=== PATIENT | female | born 1935 | race Caucasian/White ===

== ENCOUNTER → 2017-07-02 | Outpatient (CLI) | payer OTHER, MEDICARE ==
[~2017-07-02] MED LIST: ANAS1TAB19 PO; ASPI-319 PO; FISHOIL PO; IBUP-1050 PO; LEVO112T17 PO; METO-479 PO; OMEP20CA9 PO; PARO20TA3 PO
--- NOTE | 2017-07-02 14:56 | DIAGNOSTIC IMAGING REPORT ---
RIGHT HAND 3 VIEWS CLINICAL HISTORY: Right hand pain. FINDINGS: 3 views of the right hand are obtained. No prior studies are available for comparison at the time of dictation. The skeletal structures are osteopenic. No fracture is seen. There is mild narrowing at the radiocarpal articulation. There is mild osteoarthritic change seen at the first carpometacarpal and metacarpophalangeal joints. There is osteoarthritic change seen involving the interphalangeal joints, distal greater than proximal. Erosive osteoarthritis is seen involving the second, third, and fifth distal interphalangeal joints. Mild soft tissue swelling suggested in the fingers. IMPRESSION: 1. No fracture is identified. 2. Osteopenia and arthritic change as above, greatest involving the distal interphalangeal joints. See discussion. Electronically signed by: Bryce Wolf M.D. 07/02/2017 2:54 PM Dictated Date/Time: 07/02/2017 2:53 PM
== END | disposition home or self-care (01) ==
LOC: C.RAD1850 14:33
PROVIDERS: ATTEND Family Medicine
DX: M19.041 Primary osteoarthritis, right hand (principal); Z88.5 Allergy status to narcotic agent

== ENCOUNTER 2021-07-23 17:42 | Inpatient (IN) ==
[2021-07-23] MEDS ORDERED: ONDANSETRON INJ 2 MG/ML 2 ML VIAL IV STA (18:06)
--- NOTE | 2021-07-23 18:13 | Emergency Department Note ---
History of Present Illness General Chief Complaint: Abdominal Pain Stated Complaint: ABDOMINAL PAIN, VOMITING Time Seen by Provider: 07/23/21 17:51 Source: family (Daughter at bedside) History of Present Illness Provider Complaint: abdominal pain Onset (ago): 3 day(s) Pain Consistency: intermittent Location: epigastric Radiation: RUQ Severity: moderate Maximum Pain Intensity: 6 Current Pain Intensity: 6 Quality: + aching Relieved By: + nothing Exacerbated By: + nothing Context: no foreign travel, no possible food poisoning, no sick contacts, no recent antibiotic use, no recent surgery/procedure, no recent injury or no history of similar episodes Associated Symptoms: + nausea, + vomiting, + diarrhea and + headache; no fever, no chills, no constipation, no dysuria, no hematemesis, no hematochezia, no melena, no hematuria, no anorexia, no syncope, no neck pain, no chest pain and no breathing difficulty Home Medications Medication Instructions Recorded Confirmed Type acetaminophen 650 mg 1,300 mg PO TID 05/19/20 07/23/21 History tablet,extended release (Tylenol Arthritis Pain) levothyroxine 125 mcg tablet 125 mcg PO QAM 07/23/21 07/23/21 History memantine 10 mg tablet 10 mg PO BID 07/23/21 07/23/21 History metoprolol tartrate 100 mg tablet 100 mg PO QAM 07/23/21 07/23/21 History omeprazole 40 mg capsule,delayed 40 mg PO QAM 07/23/21 07/23/21 History release paroxetine HCl 20 mg tablet 20 mg PO QAM 07/23/21 07/23/21 History simvastatin 20 mg tablet 20 mg PO QPM 07/23/21 07/23/21 History Allergies Allergy/AdvReac Type Severity Reaction Status Date / Time codeine AdvReac Intermediate Vomiting/DI Verified 07/23/21 18:20 ZZINESS Past Med/Surg History Medical History Alzheimer disease Bilateral primary osteoarthritis of knee Brain bleed Hypertension Symptoms of urinary tract infection Thyroid cancer Surgical History H/O thyroidectomy S/P tonsillectomy Social History Smoking Status: Former smoker Tobacco Type: Cigarettes Feels Safe at Home: Yes Review of Systems Unobtainable due to cognitive status (Due to Alzheimer's) Physical Exam Vital Signs: Vital Signs - 24 hr 07/23/21 17:44 07/23/21 18:53 07/23/21 20:00 Temperature 37 C Temperature Source Oral Pulse Rate 81 Pulse Rate [Apical ] 67 75 Respiratory Rate 16 18 18 Respiratory Effort / Characteristics Non-Labored Sponta neous Respiratory Depth Normal Respiratory Patter n Regular Blood Pressure 182/86 H Blood Pressure [Le ft Arm] 169/67 H Blood Pressure Gauri n 118 Blood Pressure Gauri n [Left Arm] 101 Blood Pressure Pos ition Sitting Pulse Oximetry 94 96 96 Oxygen Delivery Me thod Room Air Room Air Room Air Sepsis Recent Feve r Within 48 Hours No Sepsis New/Unexpla ined Change in Men juan diego Status N/A Sepsis Action Take n by Nursing No Action Required Physical Exam: Physical Exam GENERAL: He is oriented to person, place, and time. He appears well-developed and well-nourished. He does not appear distressed. HENT: Exam performed. - Head: Normocephalic and atraumatic. - Right Ear: External ear normal. No mastoid tenderness. - Left Ear: External ear normal. No mastoid tenderness. - Mouth/Throat: The oropharynx is clear and moist. No trismus in the jaw. No dental abscesses or uvula swelling. No oropharyngeal exudate or tonsillar abscesses. EYES: Conjunctivae and EOM are normal. Pupils are equal, round, and reactive to light. Right eye exhibits no discharge. Left eye exhibits no discharge. No scleral icterus. NECK: Normal range of motion. Neck supple. No JVD present. No spinous process tenderness present. No carotid bruit present. No rigidity. No tracheal deviation and normal range of motion present. No Brudzinski's sign and no Kernig's sign noted. CV: Normal rate, regular rhythm, normal heart sounds and intact distal pulses. There is no peripheral edema. Palpable radial pulses bue. PULM/CHEST: Effort normal and breath sounds normal. No respiratory distress. No stridor. He has no wheezes. He has no rales. - Chest Wall: He exhibits no tenderness. ABD: The abdomen is soft. Bowel sounds are normal. He has no distension. No mass is present. There is tenderness to palpation of the epigastric area There is no rebound, no guarding, no Ross's sign and no tenderness at McBurney's point. Rovsig negative. MUSC/SKEL: Normal range of motion. There is no peripheral edema, tenderness or deformity. LYMPH: No cervical adenopathy. NEURO: He is alert and oriented to person, place, and time. He has normal strength. No cranial nerve deficit or sensory deficit. Coordination and gait normal. GCS eye subscore is 4. GCS verbal subscore is 5. GCS motor subscore is 6. Cerebellar tests wnl. SKIN: Skin is warm and dry. He is not diaphoretic. PSYCH: He has a normal mood and affect. Behavior is normal. Judgment and thought content normal. Female Course Course 175: The patient was evaluated in room B8. A complete history and physical exam was performed Cardiac monitoring: An order was placed for continuous cardiac monitoring. The monitor shows a rate of 80 with sinus rhythm 2034: Vital signs stable. Labs within normal limits with exception of potassium 3.2. CT of the abdomen shows possible cholecystitis. CT of the head within normal limits. Patient will receive ultrasound of the abdomen. 2232:Vital signs stable. Patient is still reporting nausea and having vomiting. Ultrasound shows distended gallbladder but no gallstones. Gallbladder wall is borderline prominent measuring 4 mm. No pericholecystic fluid. Common bile duct is borderline prominent at 9 mm. Questionable intrahepatic biliary ectasia. Patient will be admitted for GI evaluation and possible MRCP. Discussed case with Dr. Lonny beasley [place] hospitalist to evaluate the patient for admission. Administered Medications Sodium Chloride (Nss) 500 mls @ 125 mls/hr IV .Q4H [facility] Stop: 08/22/21 18:14 Last Admin: 07/23/21 21:44 Dose: 125 mls/hr Documented by: [id number] Infusion: 07/23/21 21:44 Dose: 125 mls/hr Documented by: [id number] Admin: 07/23/21 18:34 Dose: 125 mls/hr Documented by: [id number] Discontinued Medications Ioversol (Optiray 320 100ml) 94 ml IV ONCE ONE Stop: 07/23/21 19:46 Last Admin: 07/23/21 19:47 Dose: 94 ml Documented by: [id number] Ondansetron HCl (Ondansetron Inj 2 Mg/Ml 2 Ml Vial) 4 mg IV NOW STA Stop: 07/23/21 18:07 Last Admin: 07/23/21 18:33 Dose: 4 mg Documented by: [id number] Ondansetron HCl (Ondansetron Inj 2 Mg/Ml 2 Ml Vial) Confirm Administered Dose 4 mg .ROUTE .STK-MED ONE Stop: 07/23/21 21:04 Last Admin: 07/23/21 21:04 Dose: 2 mg Documented by: [id number] Medical Decision Making Laboratory Data Result diagrams: 07/23/21 18:23 07/23/21 18:23 Lab Results 07/23/21 07/23/21 07/23/21 Range/Units 18:23 18:23 18:23 WBC 5.99 (4.8-10.8) K/uL RBC 4.50 (4.2-5.4) M/uL Hgb 12.7 (12.0-16.0) g/dL Hct 39.2 (37-47) % MCV 87.1 (80-100) fL MCH 28.2 (25-34) pg MCHC 32.4 (32-36) g/dL RDW Std Deviation 45.2 (36.4-46.3) fL RDW Coeff of Stefania 14.2 (11.5-14.5) % Plt Count 228 (130-400) K/uL MPV 10.4 (7.4-10.4) fL Immature Gran % (Auto) 0.2 % Neut % (Auto) 63.2 % Lymph % (Auto) 22.7 % [place] % (Auto) 12.5 % Eos % (Auto) 1.2 % Baso % (Auto) 0.2 % Neut # (Auto) 3.79 (1.4-6.5) K/uL Lymph # (Auto) 1.36 (1.2-3.4) K/uL [place] # (Auto) 0.75 H (0.11-0.59) K/uL Eos # (Auto) 0.07 (0-0.5) K/uL Baso # (Auto) 0.01 (0-0.2) K/uL Immature Gran # (Auto) 0.01 (0.00-0.02) K/uL PT 10.4 (9.0-12.0) Seconds INR 1.0 (0.9-1.1) APTT 27.6 (21.0-31.0) Seconds PTT Ratio 1.0 Sodium 138 (136-145) mmol/L Potassium 3.2 L (3.5-5.1) mmol/L Chloride 102 (98-107) mmol/L Carbon Dioxide 27 (21-32) mmol/L Anion Gap 9 (3-11) BUN 13 (6-23) mg/dl Creatinine 0.70 (0.6-1.2) mg/dl Est Cr Clr Drug Dosing 66.3 ml/min Est GFR ( Amer) 92.9 ml/min Est GFR (Non-Af Amer) 80.1 ml/min BUN/Creatinine Ratio 18.6 (10-20) Glucose 121 H (70-99(Fasting)) mg/dl Calcium 8.8 (8.5-10.1) mg/dl Total Bilirubin 0.4 (0.2-1.0) mg/dl Direct Bilirubin 0.0 (0-0.2) mg/dl AST 15 (13-39) U/L ALT 12 (7-52) U/L Alkaline Phosphatase 84 (34-104) U/L Troponin I High Sens (0-14) pg/ml Total Protein 6.7 (6.0-8.3) gm/dl Albumin 4.0 (3.4-5.0) gm/dl Lipase 32 (11-82) U/L Urine Color Urine Appearance (Clear) Urine pH (4.5-7.5) Ur Specific [place] (1.000-1.030) Urine Protein (Negative) Urine Glucose (UA) (Negative) Urine Ketones (Negative) Urine Blood (Negative) Urine Nitrite (Negative) Urine Bilirubin (Negative) Urine Urobilinogen (Negative) Ur Leukocyte Esterase (Negative) Urine WBC (Auto) (0-5) /hpf Urine RBC (Auto) (0-4) /hpf U Hyaline Cast (Auto) (0-5) /lpf U Epithel Cells (Auto) (0-5) /lpf Urine Bacteria (Auto) (Negative) 07/23/21 07/23/21 Range/Units 18:23 Unknown WBC (4.8-10.8) K/uL RBC (4.2-5.4) M/uL Hgb (12.0-16.0) g/dL Hct (37-47) % MCV (80-100) fL MCH (25-34) pg MCHC (32-36) g/dL RDW Std Deviation (36.4-46.3) fL RDW Coeff of Stefania (11.5-14.5) % Plt Count (130-400) K/uL MPV (7.4-10.4) fL Immature Gran % (Auto) % Neut % (Auto) % Lymph % (Auto) % [place] % (Auto) % Eos % (Auto) % Baso % (Auto) % Neut # (Auto) (1.4-6.5) K/uL Lymph # (Auto) (1.2-3.4) K/uL [place] # (Auto) (0.11-0.59) K/uL Eos # (Auto) (0-0.5) K/uL Baso # (Auto) (0-0.2) K/uL Immature Gran # (Auto) (0.00-0.02) K/uL PT (9.0-12.0) Seconds INR (0.9-1.1) APTT (21.0-31.0) Seconds PTT Ratio Sodium (136-145) mmol/L Potassium (3.5-5.1) mmol/L Chloride (98-107) mmol/L Carbon Dioxide (21-32) mmol/L Anion Gap (3-11) BUN (6-23) mg/dl Creatinine (0.6-1.2) mg/dl Est Cr Clr Drug Dosing ml/min Est GFR ( Amer) ml/min Est GFR (Non-Af Amer) ml/min BUN/Creatinine Ratio (10-20) Glucose (70-99(Fasting)) mg/dl Calcium (8.5-10.1) mg/dl Total Bilirubin (0.2-1.0) mg/dl Direct Bilirubin (0-0.2) mg/dl AST (13-39) U/L ALT (7-52) U/L Alkaline Phosphatase (34-104) U/L Troponin I High Sens 11.5 (0-14) pg/ml Total Protein (6.0-8.3) gm/dl Albumin (3.4-5.0) gm/dl Lipase Cancelled (11-82) U/L Urine Color Yellow Urine Appearance Clear (Clear) Urine pH 6.0 (4.5-7.5) Ur Specific [place] 1.010 (1.000-1.030) Urine Protein Negative (Negative) Urine Glucose (UA) Negative (Negative) Urine Ketones Negative (Negative) Urine Blood Negative (Negative) Urine Nitrite Negative (Negative) Urine Bilirubin Negative (Negative) Urine Urobilinogen Negative (Negative) Ur Leukocyte Esterase Trace H (Negative) Urine WBC (Auto) 1-5 (0-5) /hpf Urine RBC (Auto) 0-4 (0-4) /hpf U Hyaline Cast (Auto) 1-5 (0-5) /lpf U Epithel Cells (Auto) 10-20 H (0-5) /lpf Urine Bacteria (Auto) Negative (Negative) Imaging Data Radiologist's Impression: Abdomen/Pelvis CT 07/23/21 18:06 CT abd pelvis IV con only CLINICAL HISTORY: epigastric hughes TECHNIQUE: Helical axial images of the abdomen and pelvis were obtained and displayed. Automated dose lowering techniques and/or adjustment according to patient size were utilized for this exam. This exam was performed with intravenous contrast. CT DOSE: 1299.77 mGy.cm COMPARISON: None available at the time of this dictation. FINDINGS: Lower chest: No acute abnormality Liver: Focal fatty changes are noted about the falciform ligament. Subcentimeter hypodensities are favored to represent cysts. Gallbladder and biliary tree: There is minimal prominence of the gallbladder wall. No intra- or extrahepatic biliary ductal dilation. Pancreas: Unremarkable, no focal lesions. Spleen: Unremarkable. Adrenals: Unremarkable. Kidneys and ureters: Left-sided peripelvic cysts are seen. Bladder: Unremarkable. Reproductive organs: Unremarkable. Bowel: Diverticulosis is seen without evidence of diverticulitis. The appendix is surgically absent. A moderate hiatal hernia is seen. Lymph nodes Retroperitoneal: Subcentimeter valdez hepatis nodes are noted. Mesenteric: Unremarkable. Pelvic: Unremarkable. Peritoneum: Normal. Vessels: Atherosclerotic calcifications are seen. Abdominal wall: A fat-containing umbilical hernia is seen. Bones: Degenerative changes in the visualized spine. IMPRESSION: Questionable prominence of the gallbladder wall. If there is clinical concern for acute cholecystitis, right upper quadrant ultrasound can be performed. Otherwise no acute abnormalities are seen. ACT 112: Negative or not required by law. Electronically signed by: Alessandro Velazquez M.D. 07/23/2021 8:04 PM Chest X-Ray 07/23/21 18:07 XR chest 1V portable CLINICAL HISTORY: epigastric pain TECHNIQUE: Single frontal radiograph of the chest was obtained. Comparison: Comparison is made to rib series 08/24/2015 FINDINGS: No lines and tubes are seen. Calcified aortic knob is seen. The lungs are clear. No evidence of pleural effusion or pneumothorax. IMPRESSION: No acute chest disease. ACT 112: Negative or not required by law. Electronically signed by: Alessandro Velazquez M.D. 07/23/2021 7:[address] 07/23/21 18:07 CT head/brain wo con CLINICAL HISTORY: bansal Technique: Contiguous axial CT images of the head were acquired from the base of the skull to the vertex without intravenous contrast administration. Images were viewed in brain, subdural and bone windows. Automated dose lowering techniques and/or adjustment according to patient size were utilized for this exam. Comparison: Comparison is made to CT head 03/02/2012 Findings: Areas of decreased attenuation are present in the periventricular and subcortical white matter bilaterally consistent with small vessel ischemic di sease. Generalized cerebral atrophy with commensurate enlargement of the ventricles, sulci, and cisterns is also present. There is no acute intracranial hemorrhage or evidence of acute territorial infarction. No shift of the midline structures, mass effect, or extra-axial abnormalities are shown. A therosclerotic calcifications are present in the intracranial segments of the internal carotid arteries. Imaged portions of the paranasal sinuses and mastoid air cells are clear. The orbits appear normal. There are no acute fractures of the calvaria or scalp swelling. Hyperostosis frontalis is incidentally noted. Impression: No acute intracranial hemorrhage, no evidence of acute territorial infarction or other acute intracranial disease process. ACT 112: Negative or not required by law. Electronically signed by: Alessandro Velazquez M.D. 07/23/2021 7:56 PM PreliminaryFindingsOnly See Final Report For Complete Findings US GALLBLADDER: The gallbladder is distended. There are no gallstones. The gallbladder wall is borderline prominent, measuring 4 mm. However, there is no pericholecystic fluid or reported sonographic Murphysign. The common bile duct is borderline prominent for the patient's age measuring 9 mm. Questionable subtle intrahepatic biliaryectasia. Please correlate with laboratoryfindings. If there is concern for biliarystasis, MRCP or endoscopic evaluation maybe appropriate. The liver is hyperechoic, measuring 16.9 cm. No focal abnormalityidentified. The visualized pancreas, portal vein and right kidneyare unremarkable. Small right pleural eff usion suggested. No free intraperitoneal fluid. Radiologist: Evaristo Espana MD Study ready at 21:47 and initial results transmitted at 22:00 ECG Data Indication: abdominal pain Rate (beats per minute): 67 Rhythm: normal sinus Findings: no ST depression, no ST elevation or no prolonged QT MDM Narrative 1751: The patient was evaluated in room B8. A complete history and physical exam was performed Cardiac monitoring: An order was placed for continuous cardiac monitoring. The monitor shows a rate of 80 with sinus rhythm 2034: Vital signs stable. Labs within normal limits with exception of potassium 3.2. CT of the abdomen shows possible cholecystitis. CT of the head within normal limits. Patient will receive ultrasound of the abdomen. 2232:Vital signs stable. Patient is still reporting nausea and having vomiting. Ultrasound shows distended gallbladder but no gallstones. Gallbladder wall is borderline prominent measuring 4 mm. No pericholecystic fluid. Common bile duct is borderline prominent at 9 mm. Questionable intrahepatic biliary ectasia. Patient will be admitted for GI evaluation and possible MRCP. [facility] for [facility]. Impression & Plan Abdominal pain, Choledocholithiasis Discharge Plan Visit Data Chief Complaint: Abdominal Pain Stated Complaint: ABDOMINAL PAIN, VOMITING Discharge Problem: Abdominal pain, Choledocholithiasis Patient Disposition: Being Evaluated by Hospitalist Forms Stand Alone Forms: [facility] Prescriptions Prescriptions: No Action acetaminophen [Tylenol Arthritis Pain] 650 mg tablet extended release 1,300 mg PO TID RF: 0 metoprolol tartrate 100 mg tablet 100 mg PO QAM RF: 0 omeprazole 40 mg capsule,delayed release(DR/EC) 40 mg PO QAM RF: 0 paroxetine HCl 20 mg tablet 20 mg PO QAM RF: 0 simvastatin 20 mg tablet 20 mg PO QPM RF: 0 levothyroxine 125 mcg tablet 125 mcg PO QAM RF: 0 memantine 10 mg tablet 10 mg PO BID RF: 0 Referrals Referrals: Marv Weber DO [Primary Care Provider] -
[2021-07-23] MEDS: SODIUM CHLORIDE 0.9% 500 ML IV SCH ×2 (18:34→21:44)
[2021-07-23 18:51] LABS: Partial Thromboplastin Time 27.6 Seconds (21.0-31.0); Prothrombin Time 10.4 Seconds (9.0-12.0)
[2021-07-23 18:52] LABS: Basophils # (auto) 0.01 K/uL (0-0.2); Basophils % (auto) 0.2 %; Eosinophils # (auto) 0.07 K/uL (0-0.5); Eosinophils % (auto) 1.2 %; Hematocrit (blood only) 39.2 % (37-47); Hemoglobin 12.7 g/dL (12.0-16.0); Immature Granulocytes # (auto) 0.01 K/uL (0.00-0.02); Immature Granulocytes % (auto) 0.2 %; Lymphocytes # (auto) 1.36 K/uL (1.2-3.4); Lymphocytes % (auto) 22.7 %; Mean Corpuscular Hemoglobin 28.2 pg (25-34); Mean Corpuscular Hgb Conc 32.4 g/dL (32-36); Mean Corpuscular Volume 87.1 fL (80-100); Mean Platelet Volume 10.4 fL (7.4-10.4); Monocytes # (auto) 0.75 K/uL (0.11-0.59); Monocytes % (auto) 12.5 %; Neutrophils # (auto) 3.79 K/uL (1.4-6.5); Neutrophils % (auto) 63.2 %; Platelet Count 228 K/uL (130-400); RDW Coefficient of Variation 14.2 % (11.5-14.5); RDW Standard Deviation 45.2 fL (36.4-46.3); White Blood Count 5.99 K/uL (4.8-10.8)
[2021-07-23 19:06] LABS: BUN Creatinine Ratio 18.6 (10-20); Bilirubin,Total 0.4 mg/dl (0.2-1.0); Calcium 8.8 mg/dl (8.5-10.1); Creatinine Clr Calc Pharmacy 66.3 ml/min; Est GFR (African American) 92.9 ml/min; Est GFR (Non-African American) 80.1 ml/min; Potassium 3.2 mmol/L (3.5-5.1); Total Protein 6.7 gm/dl (6.0-8.3)
--- NOTE | 2021-07-23 19:19 | XRay Report ---
XR chest 1V portable CLINICAL HISTORY: epigastric pain TECHNIQUE: Single frontal radiograph of the chest was obtained. Comparison: Comparison is made to rib series 08/24/2015 FINDINGS: No lines and tubes are seen. Calcified aortic knob is seen. The lungs are clear. No evidence of pleur al effusion or pneumothorax. IMPRESSION: No acute chest disease. ACT 112: Negative or not required by law. Electronically signed by: Alessandro Velazquez M.D. 07/23/2021 7:17 PM
[2021-07-23] MEDS ORDERED: OPTIRAY 320 100ml IV ONE (19:45)
--- NOTE | 2021-07-23 19:59 | CT Scan Report ---
CT head/brain wo con CLINICAL HISTORY: bansal Technique: Contiguous axial CT images of the head were acquired from the base of the skull to the haylee loan without intravenous contrast administration. Images were viewed in brain, subdural and bone [facility] . Automated dose lowering techniques and/or adjustment according to patient size were utilized for this exam. Comparison: Comparison is made to CT head 03/02/2012 Findings: Areas of decreased attenuation are present in the periventricular and subcortical white matter bilate rally consistent with small vessel ischemic disease. Generalized cerebral atrophy with commensurate e nlargement of the ventricles, sulci, and cisterns is also present. There is no acute intracranial hem orrhage or evidence of acute territorial infarction. No shift of the midline structures, mass effect, or extra-axial abnormalities are shown. Atherosclerotic calcifications are present in the intracran ial segments of the internal carotid arteries. Imaged portions of the paranasal sinuses and mastoid air cells are clear. The orbits appear normal. There are no acute fractures of the calvaria or scalp swelling. Hyperostosis frontalis is incidental ly noted. Impression: No acute intracranial hemorrhage, no evidence of acute territorial infarction or other acute intracra nial disease process. ACT 112: Negative or not required by law. Electronically signed by: Alessandro Velazquez M.D. 07/23/2021 7:56 PM
--- NOTE | 2021-07-23 20:06 | CT Scan Report ---
CT abd pelvis IV con only CLINICAL HISTORY: epigastric hughes TECHNIQUE: Helical axial images of the abdomen and pelvis were obtained and displayed. Automated dose lowering techniques and/or adjustment according to patient size were utilized for this exam. This e xam was performed with intravenous contrast. CT DOSE: 1299.77 mGy.cm COMPARISON: None available at the time of this dictation. FINDINGS: Lower chest: No acute abnormality Liver: Focal fatty changes are noted about the falciform ligament. Subcentimeter hypodensities are fa vored to represent cysts. Gallbladder and biliary tree: There is minimal prominence of the gallbladder wall. No intra- or extra hepatic biliary ductal dilation. Pancreas: Unremarkable, no focal lesions. Spleen: Unremarkable. Adrenals: Unremarkable. Kidneys and ureters: Left-sided peripelvic cysts are seen. Bladder: Unremarkable. Reproductive organs: Unremarkable. Bowel: Diverticulosis is seen without evidence of diverticulitis. The appendix is surgically absent. A moderate hiatal hernia is seen. Lymph nodes Retroperitoneal: Subcentimeter valdez hepatis nodes are noted. Mesenteric: Unremarkable. Pelvic: Unremarkable. Peritoneum: Normal. Vessels: Atherosclerotic calcifications are seen. Abdominal wall: A fat-containing umbilical hernia is seen. Bones: Degenerative changes in the visualized spine. IMPRESSION: Questionable prominence of the gallbladder wall. If there is clinical concern for acute cholecystitis , right upper quadrant ultrasound can be performed. Otherwise no acute abnormalities are seen. ACT 112: Negative or not required by law. Electronically signed by: Alessandro Velazquez M.D. 07/23/2021 8:04 PM
[2021-07-23] MEDS ORDERED: ONDANSETRON INJ 2 MG/ML 2 ML VIAL ONE (21:03)
[2021-07-23 21:20] LABS: Appearance Urine Clear (Clear); Bacteria Urine Automated Negative (Negative); Bilirubin Urine Negative (Negative); Blood Urine Negative (Negative); Color Urine Yellow; Glucose Urine UA Negative (Negative); Ketones Urine Negative (Negative); Leukocyte Esterase Urine Trace (Negative); Nitrite Urine Negative (Negative); Protein Urine Negative (Negative); RBC Urine Automated 0-4 /hpf (0-4); Urobilinogen Urine Negative (Negative)
[2021-07-23] MEDS ORDERED: METOCLOPRAMIDE HCL INJ 5 MG/ML 2 ML VIAL IV ONE (22:22)
[2021-07-23] MEDS ORDERED: diphenhydrAMINE 50 MG/ML VIAL IV STA (22:22)
--- NOTE | 2021-07-23 22:43 | History & Physical Report ---
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 Acute abdominal pain with NBNB emesis and watery diarrhea -Suspect symptoms likely due to potential biliary pathology- unlikely cholecystitis or cholangitis but possible choledocholithiasis. Differential also includes viral gastroenteritis given associated diarrhea -CTAP- gallbladder wall prominence. RUQ US- gallbladder distension, wall promi nence, CBD prominence to 9mm, potential subtle biliary ectasia -MRCP ordered for further biliary imaging -Gastroenterology consult ordered for AM -NPO midnight for potential procedure in AM, maintenance IVF with NSS -Reglan PRN for nausea (with Benadryl concurrent administration) Hypokalemia -K 3.2 on admission, likely due to GI losses -Currently normal sinus rhythm -Given 40 meq KCl for repletion -Trend electrolytes, Mg level ordered for AM Bilateral knee osteoarthritis -Reportedly gets cortisone injections as outpatient -Home pain regimen includes Tylenol 1300 mg PO TID- total 3900 mg daily -Consider decrease Tylenol total daily dose as outpatient -Tylenol 1000 mg q8h PRN for pain Hypertension -Some elevated BPs while in ER to 160s-180s/80s -Suspect elevated BP due to pain + acute illness -Continue home metoprolol tartrate 100 mg daily Hyperlipidemia -Continue home simvastatin 20 mg daily GERD -Continue home omeprazole 40 mg daily Anxiety -Continue home paroxetine 20 mg daily History of thyroid cancer s/p thyroidectomy -Unknown which kind of thyroid cancer pt had -Continue Synthroid 125 mcg daily History of hemorrhagic stroke -Apparent history of hemorrhagic stroke 30 years prior -CT Head on admission demonstrating chronic small vessel ischemic changes, no acute process FENGI: NPO midnight for potential procedure in AM Code status: Full code, though pt states she may change her mind about intubation later DVT ppx: Lovenox 40 mg SQ BID Isolation: none Dispo: Medical with telemetry (2) Abdominal pain: (3) Alzheimer disease: (4) Bilateral primary osteoarthritis of knee: (5) Hypertension: (6) Hyperlipidemia: History of Present Illness Chief Complaint: Vomiting Primary Care Provider: Marv Weber DO 85 yo F with PMH Alzheimer's dementia, 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 History provided by both patient and daughter at bedside. Pt initially began to experience NBNB emesis evening of 07/20. Experienced multiple episodes of NBNB emesis along with watery diarrhea continuing through the weekend. Accompanied by decreased appetite- did drink water and fluids but no solid food until some toast today in AM. Developed achy middle abdominal pain wrapping around both sides of her abdomen and worst in RUQ. Denies fever, no recent travel or sick contacts. No previous history of significant alcohol use, though she does endorse smoking until her 60s. Does report chronic knee pain for which she receives intermittent steroid injections and takes regular Tylenol. On evaluation, pt denies nausea or abdominal pain. Feels overall well, denies hunger. Allergies Allergy/AdvReac Type Severity Reaction Status Date / Time codeine AdvReac Intermediate Vomiting/DI Verified 07/23/21 18:20 [facility] Home Medications Medication Instructions Recorded Confirmed Type acetaminophen 650 mg 1,300 mg PO TID 05/19/20 07/23/21 History tablet,extended release (Tylenol Arthritis Pain) levothyroxine 125 mcg tablet 125 mcg PO QAM 07/23/21 07/23/21 History memantine 10 mg tablet 10 mg PO BID 07/23/21 07/23/21 History metoprolol tartrate 100 mg tablet 100 mg PO QAM 07/23/21 07/23/21 History omeprazole 40 mg capsule,delayed 40 mg PO QAM 07/23/21 07/23/21 History release paroxetine HCl 20 mg tablet 20 mg PO QAM 07/23/21 07/23/21 History simvastatin 20 mg tablet 20 mg PO QPM 07/23/21 07/23/21 History Past Med/Surg History Medical History Alzheimer disease Bilateral primary osteoarthritis of knee Brain bleed Hypertension Symptoms of urinary tract infection Thyroid cancer Surgical History H/O thyroidectomy S/P tonsillectomy Social History Smoking Status: Former smoker Tobacco Type: Cigarettes Second Hand Exposure: No; Do You Dip or Chew Tobacco: No; Tobacco Cessation Education Requested by Patient: No Hx Alcohol Use: No Hx Substance Use: No Preferred Language: Upper Sorbian Communication Ability: Effective Rod Mill Operator Required: No Beliefs That Will Affect Care: None Current Living Situation: Alone Current Living Situation Comment: Pt states that she lives alone. Other Information That Helps Us Care for You: No Feels Safe at Home: Yes Safety Concerns: Feels Safe At This Time Assistive Devices: Denture - Lower and Glasses Review of Systems Review of Systems: Per HPI Physical Exam Physical Exam: General: well-appearing, obese female laying in bed, no acute distress HEENT: moist mucous membranes, no scleral icterus or jaundice, no cervical lymphadenopathy CV: RRR, normal S1, S2, no murmurs Resp: CTAB, unlabored respirations Abd: soft, slight distension, tender to palpation of RUQ, negative Ross sign, negative Rovsing sign, no McBurney point tenderness, normal bowel sounds, no guarding or rebound Skin: no jaundice, no rashes, warm and dry Extremities: no peripheral edema, distal LE pulses intact b/l Results & Data Results & Data ([facility]) Vital Signs (Past 12 Hours) Vital Signs Temp Pulse Pulse Resp BP BP Pulse Ox 07/23/21 20:00 75 18 96 07/23/21 18:53 67 18 169/67 H 96 07/23/21 17:44 37 C 81 16 182/86 H 94 Supervising Physician Co-Signing Physician Notes Patient seen and examined, chart reviewed, case discussed with Dr. Carmichael and I agree with the assessment and plan as above. Resident Activity Tracking Resident Involvement: Resident Care Provided Care Provided: Adult Hospital Medicine (1) Abdominal pain Abdominal location: right upper quadrant Qualified Code(s): R10.11 - Right upper quadrant pain
[2021-07-23] MEDS ORDERED: POTASSIUM CHLORIDE CRTAB 20 MEQ TABCR PO STA (23:09)
[2021-07-24] MEDS ORDERED: METOCLOPRAMIDE HCL INJ 5 MG/ML 2 ML VIAL IV PRN (01:06)
[2021-07-24] MEDS ORDERED: diphenhydrAMINE 50 MG/ML VIAL IV PRN (01:06)
[2021-07-24] MEDS: ENOXAPARIN INJ 40 MG/0.4 ML SYR SQ SCH ×2 (05:34→17:22)
[2021-07-24] MEDS: LEVOTHYROXINE SODIUM 125 MCG TABLET PO SCH (05:34)
--- NOTE | 2021-07-24 06:08 | Billing Data ---
Date of Service July 23, 2021 Coding Level of Care Code 46569 Initial Inpt Care Lvl 3
--- NOTE | 2021-07-24 07:45 | Ultrasound Report ---
ULTRASOUND RIGHT UPPER QUADRANT ABDOMEN CLINICAL HISTORY: Right upper quadrant abdominal pain. COMPARISON STUDY: Abdominal CT dated 07/23/2021. TECHNIQUE: Real-time, grayscale, and color flow sonography of the right upper quadrant of the abdomen was performed. Images are reviewed in the transverse and longitudinal planes. FINDINGS: Liver: The liver is normal in size and echotexture. There is minimal central intrahepatic biliary marcio juan diego dilatation. The main portal vein is patent. Gallbladder: The gallbladder is distended. No shadowing gallstones are identified. There is no gallbl adder wall is mildly thickened measuring up to 4 mm. No pericholecystic fluid is seen. A sonographic Ross's sign is reportedly absent. The common bile duct measures up to 0.9 cm in diameter. Pancreas: Visualized portions of the pancreatic head and body are normal in appearance. The splenic v ein is patent. Right kidney: Survey images of the right kidney demonstrate normal size and echotexture. There is no hydronephrosis. Ascites: None. IMPRESSION: 1. Distended and mildly thick-walled gallbladder. No shadowing gallstones are identified and a sonogr aphic Ross's sign is reportedly absent. Findings are equivocal for acute cholecystitis which is not entirely excluded. If there is clinical concern for cholecystitis a nuclear hepatobiliary scan shoul d be considered. 2. There is mild intra and extrahepatic biliary ductal dilatation. ACT 112: Negative or not required by law. Electronically signed by: Bryce Wolf M.D. 07/24/2021 7:43 AM
[2021-07-24] MEDS: PARoxetine HCL 20 MG TAB PO SCH (08:02)
[2021-07-24] MEDS: METOPROLOL TARTRATE 100 MG TAB PO SCH (08:02)
[2021-07-24] MEDS: MEMANTINE HCL 10 MG TAB PO SCH ×2 (08:03→20:12)
--- NOTE | 2021-07-24 08:14 | Hospitalist Progress Note ---
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 Patient did have history of COVID-19 end of May earlier this year. Suspect symptoms likely due to potential biliary pathology vs reflux vs viral gastroenteritis NO FURTHER VOMITING, HAD BEEN NPO THOUGH. 1 episode diarrhea this morning. Afebrile. No leukocytosis CTAP w/ prominence of GB wall. RUQ US w/ GB distention/thickened wall, equivocal for acute barron not excluded. Mild intra/extrahepatic biliary dilatation MRCP with distended GB but NO evidence for acute barron. NO gallstones. NO intrahepatic biliary ductal dilatation. Moderate to large hiatal hernia Protonix increased to 40mg BID for reflux symptoms. Denied dysphagia, but does have hx dementia. Consider speech eval if any issues HIDA w/ EF ordered PCR stool ordered --> not able to be collected w/ mixed urine this morning. Discussed to alert RN when needing to use bathroom to obtain sample Added IVF +20meq KCL while NPO as slightly dehydrated improvement since starting clears this afternoon and will discontinue --> advance diet to low fat as tolerated Consider questran for symptoms if needed if biliary colic GI consulted Consider viral panel to exclude acute viral GI illness (2) Abdominal pain: Plan: NONE reported currently, but had been NPO Tolerating clear liquids without issue, advance as tolerated Protonix increased to BID (on omeprazole daily [employer]) Imaging as above, PCR stool when able to obtain (3) Hypokalemia: Plan: K 3.2 on admission, likely due to GI losses --> ordered 40meq KCL Again low at 3.3 -- stated continued BMs this morning, could be GI losses. Additional 20meq Kcl ordered Mag 1.7, 1gm ordered Check AM cortisol (4) Alzheimer disease: Plan: alert to person/place, not year pleasant and cooperative continues on memantine 10mg BID (5) Bilateral primary osteoarthritis of knee: Plan: Reportedly gets cortisone injections as outpatient Home pain regimen includes Tylenol 1300 mg PO TID- total 3900 mg daily. LFT wnl on admission --> too much, needs reduction outpatient Tylenol 1000 mg q8h PRN for pain PT/OT consulted (6) Hypertension: Plan: Some elevated BPs while in ER to 160s-180s/80s Continued on home metoprolol tartrate 100mg daily BP currently 133/72 Monitor (7) Hyperlipidemia: Plan: Continue home simvastatin 20 mg daily Anxiety Continue home paroxetine 20 mg daily History of thyroid cancer s/p thyroidectomy Unknown which kind of thyroid cancer pt had Continue Synthroid 125 mcg daily Check TSH w/ AM labs History of hemorrhagic stroke -Apparent history of hemorrhagic stroke 30 years prior -CT Head on admission demonstrating chronic small vessel ischemic changes, no acute process Plan: DVT ppx: Lovenox 40 mg SQ BID HIDA scan ordered, stool PCR --> if negative, consideration for discharge tomorrow w/ family PT/OT consults ordered Admission and Anticipated Discharge Date Admission Date: July 23, 2021 Supervising Physician Co-Signing Physician Notes PA Supervision Note: I did not personally see or examine the patient today, but I verified all michel points of HOLLIS Ariza's assessment and plan with the following exceptions/additions: None Subjective Eval this afternoon no abdominal pain or nausea today states moved bowels but did not get sample as she didn't know they needed one knows she is in the hospital but unsure of the year, hx of dementia hopeful to go home as soon as able No fever/chills, chest pain, shortness of breath, abdominal pain, nausea, emesis or other issue reported at this time. Daughter and daughter in law visited this afternoon. Had episode of emesis x 1 last weekend, nothing like the past week since friday. No other sick contacts. No issues with food poisoning. Patient tolerating clear liquids without increased pain or issues with vomiting. Discussed HIDA scan and monitoring diet/intake overnight as well as a stool PCR. If negative, will plan for discharge tomorrow. Review of Systems Review of Systems: All systems reviewed & are unremarkable except as noted in HPI & below Physical Exam Physical Exam: General: WN/WD female sitting up in chair, NAD HEENT: slightly dry mm, trachea midline, no deviation, EOMI, pupils equal and reactive Resp: CTAB, no w/c/r, on room air CV: RRR, no m/r/g, no calf edema GI: +BS throughout, soft, nontender : no pantoja Skin: warm , dry Neuro/MSK; moves all extremities, CN intact grossly, alert to person/place, not time/year, pleasant confusion, picking at IV at times Results & Data Results & Data ([facility]) Vital Signs (Past 12 Hours) Vital Signs Temp Pulse Pulse Resp BP Pulse Ox 07/24/21 01:09 36.9 C 67 16 157/64 H 93 07/23/21 23:57 66 18 187/100 H 93 Laboratory Results 07/24/21 07/24/21 07/23/21 Range/Units 07:43 07:43 Unknown WBC 3.84 L (4.8-10.8) K/uL RBC 4.11 L (4.2-5.4) M/uL Hgb 11.8 L (12.0-16.0) g/dL Hct 36.7 L (37-47) % MCV 89.3 (80-100) fL MCH 28.7 (25-34) pg MCHC 32.2 (32-36) g/dL RDW Std Deviation 46.6 H (36.4-46.3) fL RDW Coeff of Stefania 14.2 (11.5-14.5) % Plt Count 187 (130-400) K/uL MPV 10.4 (7.4-10.4) fL Immature Gran % (Auto) 0.0 % Neut % (Auto) 54.3 % Lymph % (Auto) 29.2 % [place] % (Auto) 14.6 % Eos % (Auto) 1.6 % Baso % (Auto) 0.3 % Neut # (Auto) 2.09 (1.4-6.5) K/uL Lymph # (Auto) 1.12 L (1.2-3.4) K/uL [place] # (Auto) 0.56 (0.11-0.59) K/uL Eos # (Auto) 0.06 (0-0.5) K/uL Baso # (Auto) 0.01 (0-0.2) K/uL Immature Gran # (Auto) 0.00 (0.00-0.02) K/uL PT (9.0-12.0) Seconds INR (0.9-1.1) APTT (21.0-31.0) Seconds PTT Ratio Sodium 142 (136-145) mmol/L Potassium 3.3 L (3.5-5.1) mmol/L Chloride 107 (98-107) mmol/L Carbon Dioxide 28 (21-32) mmol/L Anion Gap 7 (3-11) BUN 7 (6-23) mg/dl Creatinine 0.55 L (0.6-1.2) mg/dl Est Cr Clr Drug Dosing 84.0 ml/min Est GFR ( Amer) 100.5 ml/min Est GFR (Non-Af Amer) 86.7 ml/min BUN/Creatinine Ratio 12.7 (10-20) Glucose 100 H (70-99(Fasting)) mg/dl Calcium 8.5 (8.5-10.1) mg/dl Magnesium 1.7 (1.7-2.4) mg/dl Total Bilirubin 0.3 (0.2-1.0) mg/dl Direct Bilirubin (0-0.2) mg/dl AST 12 L (13-39) U/L ALT 10 (7-52) U/L Alkaline Phosphatase 70 (34-104) U/L Troponin I High Sens (0-14) pg/ml Total Protein 5.8 L (6.0-8.3) gm/dl Albumin 3.6 (3.4-5.0) gm/dl Globulin 2.2 L (2.5-4.0) gm/dl Albumin/Globulin Ratio 1.6 (0.9-2) Lipase (11-82) U/L Urine Color Yellow Urine Appearance Clear (Clear) Urine pH 6.0 (4.5-7.5) Ur Specific [place] 1.010 (1.000-1.030) Urine Protein Negative (Negative) Urine Glucose (UA) Negative (Negative) Urine Ketones Negative (Negative) Urine Blood Negative (Negative) Urine Nitrite Negative (Negative) Urine Bilirubin Negative (Negative) Urine Urobilinogen Negative (Negative) Ur Leukocyte Esterase Trace H (Negative) Urine WBC (Auto) 1-5 (0-5) /hpf Urine RBC (Auto) 0-4 (0-4) /hpf U Hyaline Cast (Auto) 1-5 (0-5) /lpf U Epithel Cells (Auto) 10-20 H (0-5) /lpf Urine Bacteria (Auto) Negative (Negative) SARS-CoV-2, RNA, NAAT (NEGATIVE) 07/23/21 07/23/21 07/23/21 Range/Units 22:51 18:23 18:23 WBC (4.8-10.8) K/uL RBC (4.2-5.4) M/uL Hgb (12.0-16.0) g/dL Hct (37-47) % MCV (80-100) fL MCH (25-34) pg MCHC (32-36) g/dL RDW Std Deviation (36.4-46.3) fL RDW Coeff of Stefania (11.5-14.5) % Plt Count (130-400) K/uL MPV (7.4-10.4) fL Immature Gran % (Auto) % Neut % (Auto) % Lymph % (Auto) % [place] % (Auto) % Eos % (Auto) % Baso % (Auto) % Neut # (Auto) (1.4-6.5) K/uL Lymph # (Auto) (1.2-3.4) K/uL [place] # (Auto) (0.11-0.59) K/uL Eos # (Auto) (0-0.5) K/uL Baso # (Auto) (0-0.2) K/uL Immature Gran # (Auto) (0.00-0.02) K/uL PT (9.0-12.0) Seconds INR (0.9-1.1) APTT (21.0-31.0) Seconds PTT Ratio Sodium 138 (136-145) mmol/L Potassium 3.2 L (3.5-5.1) mmol/L Chloride 102 (98-107) mmol/L Carbon Dioxide 27 (21-32) mmol/L Anion Gap 9 (3-11) BUN 13 (6-23) mg/dl Creatinine 0.70 (0.6-1.2) mg/dl Est Cr Clr Drug Dosing 66.3 ml/min Est GFR ( Amer) 92.9 ml/min Est GFR (Non-Af Amer) 80.1 ml/min BUN/Creatinine Ratio 18.6 (10-20) Glucose 121 H (70-99(Fasting)) mg/dl Calcium 8.8 (8.5-10.1) mg/dl Magnesium (1.7-2.4) mg/dl Total Bilirubin 0.4 (0.2-1.0) mg/dl Direct Bilirubin 0.0 (0-0.2) mg/dl AST 15 (13-39) U/L ALT 12 (7-52) U/L Alkaline Phosphatase 84 (34-104) U/L Troponin I High Sens 11.5 (0-14) pg/ml Total Protein 6.7 (6.0-8.3) gm/dl Albumin 4.0 (3.4-5.0) gm/dl Globulin (2.5-4.0) gm/dl Albumin/Globulin Ratio (0.9-2) Lipase Cancelled 32 (11-82) U/L Urine Color Urine Appearance (Clear) Urine pH (4.5-7.5) Ur Specific [place] (1.000-1.030) Urine Protein (Negative) Urine Glucose (UA) (Negative) Urine Ketones (Negative) Urine Blood (Negative) Urine Nitrite (Negative) Urine Bilirubin (Negative) Urine Urobilinogen (Negative) Ur Leukocyte Esterase (Negative) Urine WBC (Auto) (0-5) /hpf Urine RBC (Auto) (0-4) /hpf U Hyaline Cast (Auto) (0-5) /lpf U Epithel Cells (Auto) (0-5) /lpf Urine Bacteria (Auto) (Negative) SARS-CoV-2, RNA, NAAT NEGATIVE (NEGATIVE) 07/23/21 07/23/21 Range/Units 18:23 18:23 WBC 5.99 (4.8-10.8) K/uL RBC 4.50 (4.2-5.4) M/uL Hgb 12.7 (12.0-16.0) g/dL Hct 39.2 (37-47) % MCV 87.1 (80-100) fL MCH 28.2 (25-34) pg MCHC 32.4 (32-36) g/dL RDW Std Deviation 45.2 (36.4-46.3) fL RDW Coeff of Stefania 14.2 (11.5-14.5) % Plt Count 228 (130-400) K/uL MPV 10.4 (7.4-10.4) fL Immature Gran % (Auto) 0.2 % Neut % (Auto) 63.2 % Lymph % (Auto) 22.7 % [place] % (Auto) 12.5 % Eos % (Auto) 1.2 % Baso % (Auto) 0.2 % Neut # (Auto) 3.79 (1.4-6.5) K/uL Lymph # (Auto) 1.36 (1.2-3.4) K/uL [place] # (Auto) 0.75 H (0.11-0.59) K/uL Eos # (Auto) 0.07 (0-0.5) K/uL Baso # (Auto) 0.01 (0-0.2) K/uL Immature Gran # (Auto) 0.01 (0.00-0.02) K/uL PT 10.4 (9.0-12.0) Seconds INR 1.0 (0.9-1.1) APTT 27.6 (21.0-31.0) Seconds PTT Ratio 1.0 Sodium (136-145) mmol/L Potassium (3.5-5.1) mmol/L Chloride (98-107) mmol/L Carbon Dioxide (21-32) mmol/L Anion Gap (3-11) BUN (6-23) mg/dl Creatinine (0.6-1.2) mg/dl Est Cr Clr Drug Dosing ml/min Est GFR ( Amer) ml/min Est GFR (Non-Af Amer) ml/min BUN/Creatinine Ratio (10-20) Glucose (70-99(Fasting)) mg/dl Calcium (8.5-10.1) mg/dl Magnesium (1.7-2.4) mg/dl Total Bilirubin (0.2-1.0) mg/dl Direct Bilirubin (0-0.2) mg/dl AST (13-39) U/L ALT (7-52) U/L Alkaline Phosphatase (34-104) U/L Troponin I High Sens (0-14) pg/ml Total Protein (6.0-8.3) gm/dl Albumin (3.4-5.0) gm/dl Globulin (2.5-4.0) gm/dl Albumin/Globulin Ratio (0.9-2) Lipase (11-82) U/L Urine Color Urine Appearance (Clear) Urine pH (4.5-7.5) Ur Specific [place] (1.000-1.030) Urine Protein (Negative) Urine Glucose (UA) (Negative) Urine Ketones (Negative) Urine Blood (Negative) Urine Nitrite (Negative) Urine Bilirubin (Negative) Urine Urobilinogen (Negative) Ur Leukocyte Esterase (Negative) Urine WBC (Auto) (0-5) /hpf Urine RBC (Auto) (0-4) /hpf U Hyaline Cast (Auto) (0-5) /lpf U Epithel Cells (Auto) (0-5) /lpf Urine Bacteria (Auto) (Negative) SARS-CoV-2, RNA, NAAT (NEGATIVE) Diagnostic Findings Abdomen/Pelvis CT 07/23/21 18:06 CT abd pelvis IV con only CLINICAL HISTORY: epigastric hughes TECHNIQUE: Helical axial images of the abdomen and pelvis were obtained and displayed. Automated dose lowering techniques and/or adjustment according to patient size were utilized for this exam. This exam was performed with intravenous contrast. CT DOSE: 1299.77 mGy.cm COMPARISON: None available at the time of this dictation. FINDINGS: Lower chest: No acute abnormality Liver: Focal fatty changes are noted about the falciform ligament. Subcentimeter hypodensities are favored to represent cysts. Gallbladder and biliary tree: There is minimal prominence of the gallbladder wall. No intra- or extrahepatic biliary ductal dilation. Pancreas: Unremarkable, no focal lesions. Spleen: Unremarkable. Adrenals: Unremarkable. Kidneys and ureters: Left-sided peripelvic cysts are seen. Bladder: Unremarkable. Reproductive organs: Unremarkable. Bowel: Diverticulosis is seen without evidence of diverticulitis. The appendix is surgically absent. A moderate hiatal hernia is seen. Lymph nodes Retroperitoneal: Subcentimeter valdez hepatis nodes are noted. Mesenteric: Unremarkable. Pelvic: Unremarkable. Peritoneum: Normal. Vessels: Atherosclerotic calcifications are seen. Abdominal wall: A fat-containing umbilical hernia is seen. Bones: Degenerative changes in the visualized spine. IMPRESSION: Questionable prominence of the gallbladder wall. If there is clinical concern for acute cholecystitis, right upper quadrant ultrasound can be performed. Oth erwise no acute abnormalities are seen. ACT 112: Negative or not required by law. Electronically signed by: Alessandro Velazquez M.D. 07/23/2021 8:04 PM Chest X-Ray 07/23/21 18:07 XR chest 1V portable CLINICAL HISTORY: epigastric pain TECHNIQUE: Single frontal radiograph of the chest was obtained. Comparison: Comparison is made to rib series 08/24/2015 FINDINGS: No lines and tubes are seen. Calcified aortic knob is seen. The lungs are clear. No evidence of pleural effusion or pneumothorax. IMPRESSION: No acute chest disease. ACT 112: Negative or not required by law. Electronically signed by: Alessandro Velazquez M.D. 07/23/2021 7:[address] 07/23/21 18:07 CT head/brain wo con CLINICAL HISTORY: bansal Technique: Contiguous axial CT images of the head were acquired from the base of the skull to the vertex without intravenous contrast administration. Images were viewed in brain, subdural and bone windows. Automated dose lowering techniques and/or adjustment according to patient size were utilized for this exam. Comparison: Comparison is made to CT head 03/02/2012 Findings: Areas of decreased attenuation are present in the periventricular and subcortical white matter bilaterally consistent with small vessel ischemic disease. Generalized cerebral atrophy with commensurate enlargement of the ventricles, sulci, and cisterns is also present. There is no acute intracranial hemorrhage or evidence of acute territorial infarction. No shift of the midline structures, mass effect, or extra-axial abnormalities are shown. Atherosclerotic calcifications are present in the intracranial segments of the internal carotid arteries. Imaged portions of the paranasal sinuses and mastoid air cells are clear. The orbits appear normal. There are no acute fractures of the calvaria or scalp swelling. Hyperostosis frontalis is incidentally noted. Impression: No acute intracranial hemorrhage, no evidence of acute territorial infarction or other acute intracranial disease process. ACT 112: Negative or not required by law. Electronically signed by: Alessandro Velazquez M.D. 07/23/2021 7:56 PM Gallbladder Ultrasound 07/23/21 20:36 ULTRASOUND RIGHT UPPER QUADRANT ABDOMEN CLINICAL HISTORY: Right upper quadrant abdominal pain. COMPARISON STUDY: Abdominal CT dated 07/23/2021. TECHNIQUE: Real-time, grayscale, and color flow sonography of the right upper quadrant of the abdomen was performed. Images are reviewed in the transverse and longitudinal planes. FINDINGS: Liver: The liver is normal in size and echotexture. There is minimal central intrahepatic biliary ductal dilatation. The main portal vein is patent. Gallbladder: The gallbladder is distended. No shadowing gallstones are identified. There is no gallbladder wall is mildly thickened measuring up to 4 mm. No pericholecystic fluid is seen. A sonographic Ross's sign is reportedly absent. The common bile duct measures up to 0.9 cm in diameter. Pancreas: Visualized portions of the pancreatic head and body are normal in appearance. The splenic vein is patent. Right kidney: Survey images of the right kidney demonstrate normal size and echotexture. There is no hydronephrosis. Ascites: None. IMPRESSION: 1. Distended and mildly thick-walled gallbladder. No shadowing gallstones are identified and a sonographic Ross's sign is reportedly absent. Findings are equivocal for acute cholecystitis which is not entirely excluded. If there is clinical concern for cholecystitis a nuclear hepatobiliary scan should be considered. 2. There is mild intra and extrahepatic biliary ductal dilatation. ACT 112: Negative or not required by law. Electronically signed by: Bryce Wolf M.D. 07/24/2021 7:43 AM PG Care Time/CCT Total # of Minutes Spent Total Time Spent with Patient: Total time spent is greater than 50% in coordination of care (as documented) at patient's floor/unit and/or counseling patient: Coding Level of Care Code 68856 Subseq Hosp Care Lvl 3 Diagnoses Emesis R11.10 Abdominal pain R10.11 Abdominal location: right upper quadrant Alzheimer disease G30.9; F02.80 Bilateral primary osteoarthritis of knee M17.0 Hypertension I10 Hyperlipidemia E78.5 Hypokalemia E87.6 (1) Abdominal pain Abdominal location: right upper quadrant Qualified Code(s): R10.11 - Right upper quadrant pain
[2021-07-24] MEDS ORDERED: NSS + 20MEQ KCL 20 MEQ/1,000 ML BAG IV SCH (08:15)
[2021-07-24 08:25] LABS: Basophils # (auto) 0.01 K/uL (0-0.2); Basophils % (auto) 0.3 %; Eosinophils # (auto) 0.06 K/uL (0-0.5); Eosinophils % (auto) 1.6 %; Hematocrit (blood only) 36.7 % (37-47); Hemoglobin 11.8 g/dL (12.0-16.0); Lymphocytes # (auto) 1.12 K/uL (1.2-3.4); Lymphocytes % (auto) 29.2 %; Mean Corpuscular Hemoglobin 28.7 pg (25-34); Mean Corpuscular Hgb Conc 32.2 g/dL (32-36); Mean Corpuscular Volume 89.3 fL (80-100); Mean Platelet Volume 10.4 fL (7.4-10.4); Monocytes # (auto) 0.56 K/uL (0.11-0.59); Monocytes % (auto) 14.6 %; Neutrophils # (auto) 2.09 K/uL (1.4-6.5); Neutrophils % (auto) 54.3 %; Platelet Count 187 K/uL (130-400); RDW Coefficient of Variation 14.2 % (11.5-14.5); RDW Standard Deviation 46.6 fL (36.4-46.3); Red Blood Count 4.11 M/uL (4.2-5.4); White Blood Count 3.84 K/uL (4.8-10.8)
[2021-07-24 08:48] LABS: Albumin Globulin Ratio 1.6 (0.9-2); Albumin Level 3.6 gm/dl (3.4-5.0); BUN Creatinine Ratio 12.7 (10-20); Bilirubin,Total 0.3 mg/dl (0.2-1.0); Calcium 8.5 mg/dl (8.5-10.1); Est GFR (African American) 100.5 ml/min; Est GFR (Non-African American) 86.7 ml/min; Globulin 2.2 gm/dl (2.5-4.0); Magnesium 1.7 mg/dl (1.7-2.4); Potassium 3.3 mmol/L (3.5-5.1); Total Protein 5.8 gm/dl (6.0-8.3)
[2021-07-24] MEDS ORDERED: PANTOprazole 40 MG TAB PO SCH (09:00)
[2021-07-24] MEDS ORDERED: MAGNESIUM SULFATE / D5W 1 GM/100 ML BAG IV ONE (09:00)
[2021-07-24] MEDS ORDERED: POTASSIUM CHLORIDE CRTAB 20 MEQ TABCR PO STA (09:17)
--- NOTE | 2021-07-24 09:42 | Magnetic Resonance Report ---
MRCP CLINICAL HISTORY: Vomiting and diarrhea. Distended gallbladder. COMPARISON STUDY: Abdominal CT and abdominal ultrasound dated 07/23/2021. TECHNIQUE: Abdominal MRCP is performed utilizing various T2-weighted sequences in the axial and coron al planes. IV contrast was not administered for this examination. 3-D reformats are created and asses sed. The examination is compromised by motion artifact. FINDINGS: The gallbladder is distended. No gallstones are clearly identified. The common bile duct measures up to 8 mm in diameter. No filling defects are clearly identified to indicate choledocholithiasis. The p ancreatic duct is normal in caliber. No intrahepatic biliary ductal dilatation is seen. There are 2 T2 hyperintense hepatic lesions which measure up to 1.0 cm. These likely represent tiny c ysts or hemangiomas. The unenhanced liver, spleen, and adrenal glands are otherwise grossly unremarka ble. The kidneys demonstrate cortical atrophy and are without hydronephrosis. Renal sinus cysts are n oted on the left. The pancreas is atrophic. There are least 2 simple cystic lesions adjacent to the p ancreatic duct which measure up to 7 mm. These are typical for tiny sidebranch IPMNs. There is no kwame dence of bowel obstruction. No abdominal ascites is seen. There is a moderate to large hiatal hernia. The heart is mildly enlarged. No pleural effusion is identified. There is no evidence of destructive bone lesion. IMPRESSION: 1. Distended gallbladder with no MRCP evidence of acute cholecystitis. 2. No gallstones are identified and there is no evidence of choledocholithiasis. 3. There is no intrahepatic biliary ductal dilatation. 4. Moderate to large hiatal hernia. Dictated: 07/24/2021 9:18 AM Transcribed: 07/24/2021 9:36 AM Blaire [id number] [email or web address] Electronically signed by: Bryce Wolf M.D. 07/24/2021 9:40 AM
--- NOTE | 2021-07-24 10:00 | Electrocardiogram Report ---
Test Reason : Blood Pressure : / mmHG Vent. Rate : 067 BPM Atrial Rate : 067 BPM P-R Int : 174 ms QRS Dur : 106 ms QT Int : 404 ms P-R-T Axes : 069 -06 026 degrees QTc Int : 426 ms Poor data quality, interpretation may be adversely affected Sinus rhythm with marked sinus arrhythmia Nonspecific T wave abnormality Abnormal ECG No previous ECGs available Confirmed by Tip Jj ([id number]) on 07/24/2021 9:59:38 AM Referred By: REFERRED SELF Confirmed By:Law Jj
--- NOTE | 2021-07-24 11:21 | Gastrointestinal Consultation ---
Date of Consultation July 24, 2021 Assessment & Plan (1) Nausea & vomiting: -Protonix 40 mg BID -Antiemetics prn -Can consider HIDA with EF to exclude gallbladder pathology -Can consider viral panel to exclude acute viral GI illness Supervising Physician Co-Signing Physician Notes Agree with VANDA Montes De Oca as above Gen: A+O x3, cooperative, NAD, sitting up eating liquid diet without difficulty Chest: CTA B/L, -W/R/R CVS: RRR, no murmur Abd: Soft, NT, ND, +BS, -HSM Ext: -c/c/e Recommend continuing her Pantoprazole 40 mg by mouth twice daily HIDA Scan with EF for further evaluation Continue supportive care. History of Present Illness Reason for Consultation: n/v Attending Physician: Monica Oh MD History of Present Illness Patient is an 85 yo female with ongoing nausea & vomiting along with abdominal pain. PMH includes Alzheimer's dementia, 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 She underwent a CT of the abdomen/pelvis that demonstrated questionable prominence of the gallbladder. A subsequent US showed distention of gb without findings of cholelithiasis or choledocholithiasis. MRCP negative for acute biliary ductal abnormalities. WBC count 3.84, H/H 11.8/36.7, K 3.3. LFTs are unremarkable. Allergies Allergy/AdvReac Type Severity Reaction Status Date / Time codeine AdvReac Intermediate Vomiting/DI Verified 07/23/21 18:20 [facility] Home Medications Medication Instructions Recorded Confirmed Type acetaminophen 650 mg 1,300 mg PO TID 05/19/20 07/23/21 History tablet,extended release (Tylenol Arthritis Pain) levothyroxine 125 mcg tablet 125 mcg PO QAM 07/23/21 07/23/21 History memantine 10 mg tablet 10 mg PO BID 07/23/21 07/23/21 History metoprolol tartrate 100 mg tablet 100 mg PO QAM 07/23/21 07/23/21 History omeprazole 40 mg capsule,delayed 40 mg PO QAM 07/23/21 07/23/21 History release paroxetine HCl 20 mg tablet 20 mg PO QAM 07/23/21 07/23/21 History simvastatin 20 mg tablet 20 mg PO QPM 07/23/21 07/23/21 History Patient History Medical History Alzheimer disease Bilateral primary osteoarthritis of knee Brain bleed Hypertension Symptoms of urinary tract infection Thyroid cancer Surgical History H/O thyroidectomy S/P tonsillectomy Social History Smoking Status: Former smoker Tobacco Type: Cigarettes Second Hand Exposure: No; Do You Dip or Chew Tobacco: No; Tobacco Cessation Education Requested by Patient: No Hx Alcohol Use: No Hx Substance Use: No Preferred Language: Kinyarwanda Communication Ability: Impaired Manager Photo Required: No Beliefs That Will Affect Care: None Current Living Situation: Alone Current Living Situation Comment: Pt states that she lives alone. Other Information That Helps Us Care for You: No Feels Safe at Home: Yes Safety Concerns: Feels Safe At This Time Assistive Devices: None Review of Systems 2 Constitutional: + fatigue Respiratory: no cough Cardiovascular: no chest pain Gastrointestinal: + abdominal pain and + nausea Physical Exam Constitutional: no acute distress Respiratory: no respiratory distress Cardiovascular: Rate/Rhythm: regular rate Gastrointestinal (Abdomen): Inspection/Auscultation: abdomen normal to inspection Musculoskeletal: Head/Neck/Chest: normocephalic Psychiatric: Orientation: alert and oriented x 3 Results & Data ([facility]) Vital Signs (Past 12 Hours) Vital Signs Temp Pulse Pulse Resp BP Pulse Ox 07/24/21 08:19 37.0 C 61 16 133/72 94 07/24/21 01:09 36.9 C 67 16 157/64 H 93 07/23/21 23:57 66 18 187/100 H 93 PG Care Time/CCT Total # of Minutes Spent Total Time Spent with Patient: Total time spent is greater than 50% in coordination of care (as documented) at patient's floor/unit and/or counseling patient: Coding Level of Care Code 11710 Initial Inpt Care Lvl 3 Diagnoses Nausea & vomiting R11.2
[2021-07-24] MEDS: PANTOprazole 40 MG TAB PO SCH ×2 (12:28→20:12)
[2021-07-24] MEDS ORDERED: ACETAMINOPHEN 325 MG TAB PO PRN (15:56)
[2021-07-24 16:00] LABS: Lyme Ab IgG w/WB Rflx Negative (Negative)
[2021-07-24 16:02] LABS: Lyme Ab IgM w/WB Rflx Negative (Negative)
[2021-07-24] MEDS: ACETAMINOPHEN 325 MG TAB PO SCH ×2 (17:23→20:13)
[2021-07-24] MEDS ORDERED: MELATONIN 3 MG TAB PO PRN (18:31)
[2021-07-24] MEDS ORDERED: QUEtiapine FUMARATE 25 MG TABLET PO PRN (18:31)
[2021-07-24] MEDS ORDERED: SIMVASTATIN 20 MG TAB PO SCH (21:00)
[2021-07-25] MEDS: LEVOTHYROXINE SODIUM 125 MCG TABLET PO SCH (06:18)
[2021-07-25] MEDS: ENOXAPARIN INJ 40 MG/0.4 ML SYR SQ SCH (06:18)
[2021-07-25 07:34] LABS: Basophils # (auto) 0.01 K/uL (0-0.2); Basophils % (auto) 0.2 %; Eosinophils % (auto) 2.2 %; Hematocrit (blood only) 37.1 % (37-47); Hemoglobin 11.6 g/dL (12.0-16.0); Lymphocytes # (auto) 0.97 K/uL (1.2-3.4); Lymphocytes % (auto) 21.3 %; Mean Corpuscular Hemoglobin 27.7 pg (25-34); Mean Corpuscular Hgb Conc 31.3 g/dL (32-36); Mean Corpuscular Volume 88.5 fL (80-100); Mean Platelet Volume 10.1 fL (7.4-10.4); Monocytes # (auto) 0.41 K/uL (0.11-0.59); Neutrophils # (auto) 3.06 K/uL (1.4-6.5); Neutrophils % (auto) 67.3 %; Platelet Count 187 K/uL (130-400); RDW Coefficient of Variation 14.3 % (11.5-14.5); RDW Standard Deviation 46.5 fL (36.4-46.3); Red Blood Count 4.19 M/uL (4.2-5.4); White Blood Count 4.55 K/uL (4.8-10.8)
[2021-07-25 08:07] LABS: Albumin Globulin Ratio 1.4 (0.9-2); Albumin Level 3.4 gm/dl (3.4-5.0); BUN Creatinine Ratio 12.5 (10-20); Bilirubin,Total 0.4 mg/dl (0.2-1.0); Calcium 8.5 mg/dl (8.5-10.1); Creatinine Clr Calc Pharmacy 72.2 ml/min; Est GFR (African American) 95.6 ml/min; Est GFR (Non-African American) 82.5 ml/min; Globulin 2.5 gm/dl (2.5-4.0); Magnesium 1.9 mg/dl (1.7-2.4); Potassium 3.5 mmol/L (3.5-5.1); Total Protein 5.9 gm/dl (6.0-8.3)
[2021-07-25 08:10] LABS: Thyroid Stimulating Hormone 8.599 uIu/ml (0.300-4.500)
--- NOTE | 2021-07-25 08:24 | Hospitalist Progress Note ---
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 Patient did have history of COVID-19 end of May earlier this year. Suspect symptoms likely due to potential biliary pathology vs reflux vs viral gastroenteritis NO FURTHER VOMITING, HAD BEEN NPO THOUGH. 1 episode diarrhea this morning. Afebrile. No leukocytosis CTAP w/ prominence of GB wall. RUQ US w/ GB distention/thickened wall, equivocal for acute barron not excluded. Mild intra/extrahepatic biliary dilatation MRCP with distended GB but NO evidence for acute barron. NO gallstones. NO intrahepatic biliary ductal dilatation. Moderate to large hiatal hernia Protonix increased to 40mg BID for reflux symptoms. Denied dysphagia, but does have hx dementia. Consider speech eval if any issues HIDA w/ EF ordered PCR stool ordered --> not able to be collected w/ mixed urine prior. Discussed to alert RN when needing to use bathroom to obtain sample Added IVF +20meq KCL while NPO as slightly dehydrated improvement since starting clears this afternoon and will discontinue --> advance diet to low fat as tolerated Consider questran for symptoms if needed if biliary colic GI consulted Consider viral panel to exclude acute viral GI illness History of thyroid cancer s/p thyroidectomy Unknown which kind of thyroid cancer pt had Continue Synthroid 125 mcg daily Checked TSH w/ AM labs --> elevated at 8.59, ft4 pending. Will need more information regarding prior thyroid ca (2) Abdominal pain: Plan: NONE reported currently, but had been NPO Tolerating clear liquids without issue, advance as tolerated Protonix increased to BID (on omeprazole daily STILL [employer]PER[employer]) Imaging as above, PCR stool when able to obtain (3) Hypokalemia: Plan: K 3.2 on admission, likely due to GI losses --> ordered 40meq KCL Again low at 3.3 -- stated continued BMs this morning, could be GI losses. Additional 20meq Kcl ordered Mag 1.7, 1gm ordered--> 1.9 Check AM cortisol, wnl (4) Alzheimer disease: Plan: alert to person/place, not year pleasant and cooperative continues on memantine 10mg BID (5) Bilateral primary osteoarthritis of knee: Plan: Reportedly gets cortisone injections as outpatient Home pain regimen includes Tylenol 1300 mg PO TID- total 3900 mg daily. LFT wnl on admission --> too much, needs reduction outpatient Tylenol 1000 mg q8h PRN for pain PT/OT consulted (6) Hypertension: Plan: Some elevated BPs while in ER to 160s-180s/80s Continued on home metoprolol tartrate 100mg daily BP currently 131/79 Monitor (7) Hyperlipidemia: Plan: Continue home simvastatin 20 mg daily Anxiety Continue home paroxetine 20 mg daily History of hemorrhagic stroke -Apparent history of hemorrhagic stroke 30 years prior -CT Head on admission demonstrating chronic small vessel ischemic changes, no acute process Plan: DVT ppx: Lovenox 40 mg SQ BID HIDA scan ordered, stool PCR --> if negative, consideration for discharge tomorrow w/ family PT/OT consults ordered Admission and Anticipated Discharge Date Admission Date: July 23, 2021 Results & Data Results & Data ([facility]) Vital Signs (Past 12 Hours) Vital Signs Temp Pulse Resp BP Pulse Ox 07/25/21 08:16 36.8 C 70 16 131/79 93 07/24/21 22:42 36.7 C 63 16 142/94 H 94 Laboratory Results 07/25/21 07/25/21 07/25/21 Range/Units 07:10 07:10 07:10 WBC 4.55 L (4.8-10.8) K/uL RBC 4.19 L (4.2-5.4) M/uL Hgb 11.6 L (12.0-16.0) g/dL Hct 37.1 (37-47) % MCV 88.5 (80-100) fL MCH 27.7 (25-34) pg MCHC 31.3 L (32-36) g/dL RDW Std Deviation 46.5 H (36.4-46.3) fL RDW Coeff of Stefania 14.3 (11.5-14.5) % Plt Count 187 (130-400) K/uL MPV 10.1 (7.4-10.4) fL Immature Gran % (Auto) 0.0 % Neut % (Auto) 67.3 % Lymph % (Auto) 21.3 % [place] % (Auto) 9.0 % Eos % (Auto) 2.2 % Baso % (Auto) 0.2 % Neut # (Auto) 3.06 (1.4-6.5) K/uL Lymph # (Auto) 0.97 L (1.2-3.4) K/uL [place] # (Auto) 0.41 (0.11-0.59) K/uL Eos # (Auto) 0.10 (0-0.5) K/uL Baso # (Auto) 0.01 (0-0.2) K/uL Immature Gran # (Auto) 0.00 (0.00-0.02) K/uL Sodium 142 (136-145) mmol/L Potassium 3.5 (3.5-5.1) mmol/L Chloride 107 (98-107) mmol/L Carbon Dioxide 28 (21-32) mmol/L Anion Gap 7 (3-11) BUN 8 (6-23) mg/dl Creatinine 0.64 (0.6-1.2) mg/dl Est Cr Clr Drug Dosing 72.2 ml/min Est GFR ( Amer) 95.6 ml/min Est GFR (Non-Af Amer) 82.5 ml/min BUN/Creatinine Ratio 12.5 (10-20) Glucose 102 H (70-99(Fasting)) mg/dl Calcium 8.5 (8.5-10.1) mg/dl Magnesium 1.9 (1.7-2.4) mg/dl Total Bilirubin 0.4 (0.2-1.0) mg/dl AST 13 (13-39) U/L ALT 10 (7-52) U/L Alkaline Phosphatase 70 (34-104) U/L Total Protein 5.9 L (6.0-8.3) gm/dl Albumin 3.4 (3.4-5.0) gm/dl Globulin 2.5 (2.5-4.0) gm/dl Albumin/Globulin Ratio 1.4 (0.9-2) TSH (0.300-4.500) uIu/ml Free T4 Cortisol AM Sample 14.28 (6.2-22.6) mcg/dl Lyme Disease IgG Ab (Negative) Lyme Disease IgM Ab (Negative) 07/25/21 07/24/21 07/24/21 Range/Units 07:10 14:06 07:43 WBC (4.8-10.8) K/uL RBC (4.2-5.4) M/uL Hgb (12.0-16.0) g/dL Hct (37-47) % MCV (80-100) fL MCH (25-34) pg MCHC (32-36) g/dL RDW Std Deviation (36.4-46.3) fL RDW Coeff of Stefania (11.5-14.5) % Plt Count (130-400) K/uL MPV (7.4-10.4) fL Immature Gran % (Auto) % Neut % (Auto) % Lymph % (Auto) % [place] % (Auto) % Eos % (Auto) % Baso % (Auto) % Neut # (Auto) (1.4-6.5) K/uL Lymph # (Auto) (1.2-3.4) K/uL [place] # (Auto) (0.11-0.59) K/uL Eos # (Auto) (0-0.5) K/uL Baso # (Auto) (0-0.2) K/uL Immature Gran # (Auto) (0.00-0.02) K/uL Sodium 142 (136-145) mmol/L Potassium 3.3 L (3.5-5.1) mmol/L Chloride 107 (98-107) mmol/L Carbon Dioxide 28 (21-32) mmol/L Anion Gap 7 (3-11) BUN 7 (6-23) mg/dl Creatinine 0.55 L (0.6-1.2) mg/dl Est Cr Clr Drug Dosing 84.0 ml/min Est GFR ( Amer) 100.5 ml/min Est GFR (Non-Af Amer) 86.7 ml/min BUN/Creatinine Ratio 12.7 (10-20) Glucose 100 H (70-99(Fasting)) mg/dl Calcium 8.5 (8.5-10.1) mg/dl Magnesium 1.7 (1.7-2.4) mg/dl Total Bilirubin 0.3 (0.2-1.0) mg/dl AST 12 L (13-39) U/L ALT 10 (7-52) U/L Alkaline Phosphatase 70 (34-104) U/L Total Protein 5.8 L (6.0-8.3) gm/dl Albumin 3.6 (3.4-5.0) gm/dl Globulin 2.2 L (2.5-4.0) gm/dl Albumin/Globulin Ratio 1.6 (0.9-2) TSH 8.599 H (0.300-4.500) uIu/ml Free T4 Pending Cortisol AM Sample (6.2-22.6) mcg/dl Lyme Disease IgG Ab Negative (Negative) Lyme Disease IgM Ab Negative (Negative) 07/24/21 Range/Units 07:43 WBC 3.84 L (4.8-10.8) K/uL RBC 4.11 L (4.2-5.4) M/uL Hgb 11.8 L (12.0-16.0) g/dL Hct 36.7 L (37-47) % MCV 89.3 (80-100) fL MCH 28.7 (25-34) pg MCHC 32.2 (32-36) g/dL RDW Std Deviation 46.6 H (36.4-46.3) fL RDW Coeff of Stefania 14.2 (11.5-14.5) % Plt Count 187 (130-400) K/uL MPV 10.4 (7.4-10.4) fL Immature Gran % (Auto) 0.0 % Neut % (Auto) 54.3 % Lymph % (Auto) 29.2 % [place] % (Auto) 14.6 % Eos % (Auto) 1.6 % Baso % (Auto) 0.3 % Neut # (Auto) 2.09 (1.4-6.5) K/uL Lymph # (Auto) 1.12 L (1.2-3.4) K/uL [place] # (Auto) 0.56 (0.11-0.59) K/uL Eos # (Auto) 0.06 (0-0.5) K/uL Baso # (Auto) 0.01 (0-0.2) K/uL Immature Gran # (Auto) 0.00 (0.00-0.02) K/uL Sodium (136-145) mmol/L Potassium (3.5-5.1) mmol/L Chloride (98-107) mmol/L Carbon Dioxide (21-32) mmol/L Anion Gap (3-11) BUN (6-23) mg/dl Creatinine (0.6-1.2) mg/dl Est Cr Clr Drug Dosing ml/min Est GFR ( Amer) ml/min Est GFR (Non-Af Amer) ml/min BUN/Creatinine Ratio (10-20) Glucose (70-99(Fasting)) mg/dl Calcium (8.5-10.1) mg/dl Magnesium (1.7-2.4) mg/dl Total Bilirubin (0.2-1.0) mg/dl AST (13-39) U/L ALT (7-52) U/L Alkaline Phosphatase (34-104) U/L Total Protein (6.0-8.3) gm/dl Albumin (3.4-5.0) gm/dl Globulin (2.5-4.0) gm/dl Albumin/Globulin Ratio (0.9-2) TSH (0.300-4.500) uIu/ml Free T4 Cortisol AM Sample (6.2-22.6) mcg/dl Lyme Disease IgG Ab (Negative) Lyme Disease IgM Ab (Negative) PG Care Time/CCT Total # of Minutes Spent Total Time Spent with Patient: Total time spent is greater than 50% in coordination of care (as documented) at patient's floor/unit and/or counseling patient: Coding Diagnoses Emesis R11.10 Abdominal pain R10.11 Abdominal location: right upper quadrant Hypokalemia E87.6 Alzheimer disease G30.9; F02.80 Bilateral primary osteoarthritis of knee M17.0 Hypertension I10 Hyperlipidemia E78.5 (1) Abdominal pain Abdominal location: right upper quadrant Qualified Code(s): R10.11 - Right upper quadrant pain
[2021-07-25] MEDS: ACETAMINOPHEN 325 MG TAB PO SCH (08:34)
[2021-07-25] MEDS: METOPROLOL TARTRATE 100 MG TAB PO SCH (08:34)
[2021-07-25] MEDS: MEMANTINE HCL 10 MG TAB PO SCH (08:34)
[2021-07-25] MEDS: PANTOprazole 40 MG TAB PO SCH (08:35)
[2021-07-25] MEDS: PARoxetine HCL 20 MG TAB PO SCH (08:35)
[2021-07-25 08:53] LABS: T4 Free Thyroxine 1.05 ng/dl (0.61-1.60)
--- NOTE | 2021-07-25 09:45 | Gastroenterology Progress Note ---
Date of Service July 25, 2021 Assessment & Plan (1) Nausea & vomiting: Plan: -HIDA scan -Protonix 40 mg BID Admission and Anticipated Discharge Date Admission Date: July 23, 2021 Subjective Patient is an 85 yo female with n/v. Symptoms resolved. She denies further complaints at present. She is on BID PPI therapy. Review of Systems Constitutional: no fever and no chills Gastrointestinal: no abdominal pain, no nausea and no vomiting Physical Exam Constitutional: well developed Respiratory: normal respiratory effort Cardiovascular: Rate/Rhythm: regular rate Gastrointestinal (Abdomen): Inspection/Auscultation: abdomen normal to inspection Musculoskeletal: Head/Neck/Chest: normocephalic Psychiatric: Orientation: alert and oriented x 3 Results & Data Results & Data ([facility]) Vital Signs (Past 12 Hours) Vital Signs Temp Pulse Resp BP Pulse Ox 07/25/21 08:16 36.8 C 70 16 131/79 93 07/24/21 22:42 36.7 C 63 16 142/94 H 94 PG Care Time/CCT Total # of Minutes Spent Total Time Spent with Patient: Total time spent is greater than 50% in coordination of care (as documented) at patient's floor/unit and/or counseling patient: Coding Level of Care Code 14635 Subseq Hosp Care Lvl 2 Diagnoses Nausea & vomiting R11.2
[2021-07-25] MEDS ORDERED: SINCALIDE 1.9 MCG in 0.9 % SODIUM CHLORIDE 100 ML IV SCH (14:00)
--- NOTE | 2021-07-25 14:27 | Discharge Summary ---
Date of Service July 25, 2021 Admission HPI Per Admitting Provider 85 yo F with PMH Alzheimer's dementia, 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 History provided by both patient and daughter at bedside. Pt initially began to experience NBNB emesis evening of 07/20. Experienced multiple episodes of NBNB emesis along with watery diarrhea continuing through the weekend. Accompanied by decreased appetite- did drink water and fluids but no solid food until some toast today in AM. Developed achy middle abdominal pain wrapping around both sides of her abdomen and worst in RUQ. Denies fever, no recent travel or sick contacts. No previous history of significant alcohol use, though she does endorse smoking until her 60s. Does report chronic knee pain for which she receives intermittent steroid injections and takes regular Tylenol. On evaluation, pt denies nausea or abdominal pain. Feels overall well, denies hunger. Admission Exam Per Admitting Provider General: well-appearing, obese female laying in bed, no acute distress HEENT: moist mucous membranes, no scleral icterus or jaundice, no cervical lymphadenopathy CV: RRR, normal S1, S2, no murmurs Resp: CTAB, unlabored respirations Abd: soft, slight distension, tender to palpation of RUQ, negative Ross sign, negative Rovsing sign, no McBurney point tenderness, normal bowel sounds, no guarding or rebound Skin: no jaundice, no rashes, warm and dry Extremities: no peripheral edema, distal LE pulses intact b/l Principal Diagnosis Viral Enteritis, Reflux Discharge Exam General: WN/WD female sitting up in chair, NAD HEENT: mmm, trachea midline, no deviation, EOMI, pupils equal and reactive Resp: CTAB, no w/c/r, on room air CV: RRR, no m/r/g, no calf edema GI: +BS throughout, soft, nontender : no pantoja Skin: warm , dry Neuro/MSK; moves all extremities, CN intact grossly, alert to person/place, not time/year, pleasant confusion and cooperative Discharge Data Allergies Allergy/AdvReac Type Severity Reaction Status Date / Time codeine AdvReac Intermediate Vomiting/DI Verified 07/23/21 18:20 ZZINESS Consultations 07/23/21 22:10 ED Decision to Admit Stat 07/24/21 01:06 Consult Gastroenterology Routine Ordered Studies Abdomen/Pelvis CT 07/23/21 18:06 CT abd pelvis IV con only CLINICAL HISTORY: epigastric hughes TECHNIQUE: Helical axial images of the abdomen and pelvis were obtained and displayed. Automated dose lowering techniques and/or adjustment according to patient size were utilized for this exam. This exam was performed with intravenous contrast. CT DOSE: 1299.77 mGy.cm COMPARISON: None available at the time of this dictation. FINDINGS: Lower chest: No acute abnormality Liver: Focal fatty changes are noted about the falciform ligament. Subcentimeter hypodensities are favored to represent cysts. Gallbladder and biliary tree: There is minimal prominence of the gallbladder wall. No intra- or extrahepatic biliary ductal dilation. Pancreas: Unremarkable, no focal lesions. Spleen: Unremarkable. Adrenals: Unremarkable. Kidneys and ureters: Left-sided peripelvic cysts are seen. Bladder: Unremarkable. Reproductive organs: Unremarkable. Bowel: Diverticulosis is seen without evidence of diverticulitis. The appendix is surgically absent. A moderate hiatal hernia is seen. Lymph nodes Retroperitoneal: Subcentimeter valdez hepatis nodes are noted. Mesenteric: Unremarkable. Pelvic: Unremarkable. Peritoneum: Normal. Vessels: Atherosclerotic calcifications are seen. Abdominal wall: A fat-containing umbilical hernia is seen. Bones: Degenerative changes in the visualized spine. IMPRESSION: Questionable prominence of the gallbladder wall. If there is clinical concern for acute cholecystitis, right upper quadrant ultrasound can be performed. Otherwise no acute abnormalities are seen. ACT 112: Negative or not required by law. Electronically signed by: Alessandro Velazquez M.D. 07/23/2021 8:04 PM Chest X-Ray 07/23/21 18:07 XR chest 1V portable CLINICAL HISTORY: epigastric pain TECHNIQUE: Single frontal radiograph of the chest was obtained. Comparison: Comparison is made to rib series 08/24/2015 FINDINGS: No lines and tubes are seen. Calcified aortic knob is seen. The lungs are clear. No evidence of pleural effusion or pneumothorax. IMPRESSION: No acute chest disease. ACT 112: Negative or not required by law. Electronically signed by: Alessandro Velazquez M.D. 07/23/2021 7:[address] 07/23/21 18:07 CT head/brain wo con CLINICAL HISTORY: bansal Technique: Contiguous axial CT images of the head were acquired from the base of the skull to the vertex without intravenous contrast administration. Images were viewed in brain, subdural and bone windows. Automated dose lowering techniques and/or adjustment according to patient size were utilized for this exam. Comparison: Comparison is made to CT head 03/02/2012 Findings: Areas of decreased attenuation are present in the periventricular and subcortical white matter bilaterally consistent with small vessel ischemic disease. Generalized cerebral atrophy with commensurate enlargement of the ventricles, sulci, and cisterns is also present. There is no acute intracranial hemorrhage or evidence of acute territorial infarction. No shift of the midline structures, mass effect, or extra-axial abnormalities are shown. Atherosclerotic calcifications are present in the intracranial segments of the internal carotid arteries. Imaged portions of the paranasal sinuses and mastoid air cells are clear. The orbits appear normal. There are no acute fractures of the calvaria or scalp swelling. Hyperostosis frontalis is incidentally noted. Impression: No acute intracranial hemorrhage, no evidence of acute territorial infarction or other acute intracranial disease process. ACT 112: Negative or not required by law. Electronically signed by: Alessandro Velazquez M.D. 07/23/2021 7:56 PM Gallbladder Ultrasound 07/23/21 20:36 ULTRASOUND RIGHT UPPER QUADRANT ABDOMEN CLINICAL HISTORY: Right upper quadrant abdominal pain. COMPARISON STUDY: Abdominal CT dated 07/23/2021. TECHNIQUE: Real-time, grayscale, and color flow sonography of the right upper quadrant of the abdomen was performed. Images are reviewed in the transverse and longitudinal planes. FINDINGS: Liver: The liver is normal in size and echotexture. There is minimal central intrahepatic biliary ductal dilatation. The main portal vein is patent. Gallbladder: The gallbladder is distended. No shadowing gallstones are identified. There is no gallbladder wall is mildly thickened measuring up to 4 mm. No pericholecystic fluid is seen. A sonographic Ross's sign is reportedly absent. The common bile duct measures up to 0.9 cm in diameter. Pancreas: Visualized portions of the pancreatic head and body are normal in appearance. The splenic vein is patent. Right kidney: Survey images of the right kidney demonstrate normal size and echotexture. There is no hydronephrosis. Ascites: None. IMPRESSION: 1. Distended and mildly thick-walled gallbladder. No shadowing gallstones are identified and a sonographic Ross's sign is reportedly absent. Findings are equivocal for acute cholecystitis which is not entirely excluded. If there is clinical concern for cholecystitis a nuclear hepatobiliary scan should be considered. 2. There is mild intra and extrahepatic biliary ductal dilatation. ACT 112: Negative or not required by law. Electronically signed by: Bryce Wolf M.D. 07/24/2021 7:43 AM Cholangiopancreatography MRI 07/23/21 23:02 MRCP CLINICAL HISTORY: Vomiting and diarrhea. Distended gallbladder. COMPARISON STUDY: Abdominal CT and abdominal ultrasound dated 07/23/2021. TECHNIQUE: Abdominal MRCP is performed utilizing various T2-weighted sequences in the axial and coronal planes. IV contrast was not administered for this examination. 3-D reformats are created and assessed. The examination is compromised by motion artifact. FINDINGS: The gallbladder is distended. No gallstones are clearly identified. The common bile duct measures up to 8 mm in diameter. No filling defects are clearly identified to indicate choledocholithiasis. The pancreatic duct is normal in caliber. No intrahepatic biliary ductal dilatation is seen. There are 2 T2 hyperintense hepatic lesions which measure up to 1.0 cm. These likely represent tiny cysts or hemangiomas. The unenhanced liver, spleen, and adrenal glands are otherwise grossly unremarkable. The kidneys demonstrate cortical atrophy and are without hydronephrosis. Renal sinus cysts are noted on the left. The pancreas is atrophic. There are least 2 simple cystic lesions adjacent to the pancreatic duct which measure up to 7 mm. These are typical for tiny sidebranch IPMNs. There is no evidence of bowel obstruction. No abdominal ascites is seen. There is a moderate to large hiatal hernia. The heart is mildly enlarged. No pleural effusion is identified. There is no evidence of destructive bone lesion. IMPRESSION: 1. Distended gallbladder with no MRCP evidence of acute cholecystitis. 2. No gallstones are identified and there is no evidence of choledocholithiasis. 3. There is no intrahepatic biliary ductal dilatation. 4. Moderate to large hiatal hernia. Dictated: 07/24/2021 9:18 AM Transcribed: 07/24/2021 9:36 AM Blaire [id number] [email or web address] Electronically signed by: Bryce Wolf M.D. 07/24/2021 9:40 AM Hepatobiliary Scan Nuclear Medicine 07/25/21 13:00 NUCLEAR HEPATOBILIARY SCAN WITH EJECTION FRACTION IMAGING CLINICAL HISTORY: Right upper quadrant abdominal pain. COMPARISON STUDY: Abdominal ultrasound dated 07/23/2021. TECHNIQUE: Dynamic images of the liver and anterior abdomen were obtained every 5 minutes for a total of 60 minutes following the IV administration of 5.0 mCi of technetium 99m Mebrofenin. 1.9 mcg of sincalide was then injected with an additional image acquired at 45 minutes to calculate the gallbladder ejection fraction. FINDINGS: The hepatobiliary scan shows prompt and homogeneous hepatic uptake. There is visualized activity within the intra and extrahepatic biliary tree at 10 minutes, and within the gallbladder at 30 minutes. There is normal biliary to bowel transit, with small bowel visualized by 30 minutes. On the sincalide imaging, the gallbladder ejection fraction was measured at 79%. IMPRESSION: 1. Normal nuclear hepatobiliary scan. There is no scintigraphic evidence of cholecystitis. 2. The gallbladder ejection fraction measured 79% which is normal. ACT 112: Negative or not required by law. Electronically signed by: Bryce Wolf M.D. 07/25/2021 4:43 PM Hospital Course (1) Emesis: 85 yo F with PMH Alzheimer's dementia, hemorrhagic stroke 30 years ago, thyroid cancer s/p thyroidectomy 15 years prior, GERD, hiatal hernia, HTN, HLD, prediabetes, osteoarthritis, appendectomy 6 years prior presenting with emesis since last Friday. Patient did have history of COVID-19 end of May earlier this year. Suspected symptoms likely due likely viral enteritis vs reflux vs biliary pathology CTAP w/ prominence of GB wall. RUQ US w/ GB distention/thickened wall, equivocal for acute barron not excluded. Mild intra/extrahepatic biliary dilatation MRCP with distended GB but NO evidence for acute barron. NO gallstones. NO intrahepatic biliary ductal dilatation. Moderate to large hiatal hernia noted (denied any dysphagia) HIDA scan NEGATIVE, EF79% IVF provided, antiemetics prn Stool PCR ordered given diarrhea prior day, unable to collect sample since that time as no further BM GI consulted PPI increased to BID -- continued at discharge No further vomiting, advanced and tolerated low fat diet. Tolerated without issue Consider questran for symptoms if needed if biliary colic -- trial sent and can use if wanted/symptoms of loose stool with discomfort Discussed with daughter regarding GB in future and if any continued issues could consider elective vs f/u outpt with general surgery Patient feeling well and wanting to go home the past 36 hours, no further emesis since increased PPI to BID Encouraged strict reflux precautions after eating given moderate/large hiatal hernia Consider f/u if wanted for surgical correction but suspect given age/dementia would want to avoid this but can discuss with PCP History of thyroid cancer s/p thyroidectomy Unknown which kind of thyroid cancer pt had Continue Synthroid 125 mcg daily Checked TSH w/ AM labs --> elevated at 8.59, ft4 pending. Will need more information regarding prior thyroid ca --> discussed with Dr Weber, patient's PCP. Had recently had TSH checked and was elevated, increased Synthroid and plans on checking outpatient labs. Ft4 wnl (2) Abdominal pain: RESOLVED Protonix increased to BID (on omeprazole daily [employer]) -- cont at d/c Imaging as above PCR for loose stool, none further -- can f/u PCP (3) Hypokalemia: K 3.2 on admission, likely due to GI losses --> ordered replacement as well as mag 1gm IV -> normalized on repeat Cortisol AM wnl (4) Alzheimer disease: alert to person/place, not year pleasant and cooperative continues on memantine (5) Bilateral primary osteoarthritis of knee: Reportedly gets cortisone injections as outpatient Home pain regimen includes Tylenol 1300 mg PO TID- total 3900 mg daily. LFT wnl on admission --> too much, needs reduction outpatient --> changed to 1000mg TID PT/OT consulted -30/09 supervision. Family provides this at home. No d/c needs per CM (6) Hypertension: Elevated on admission in ER CT head negative on admisssion Improved and stable -- continued on home metoprolol tartrate 100mg daily (7) Hyperlipidemia: Continue home simvastatin 20 mg daily Anxiety Continue home paroxetine 20 mg daily History of hemorrhagic stroke Apparent history of hemorrhagic stroke [address] Head on admission demonstrating chronic small vessel ischemic changes, no acute process DVT ppx: Lovenox 40 mg SQ BID while inpatient Total Time Total Time Spent Total Time Spent (In Minutes): 50 Discharge Plan Discharge Items Patient Disposition: Home - Self-Care Reason For Visit: EMESIS Discharge Diagnosis: Viral Enteritis, Possible Biliary Colic vs Reflux Goals: You have been hospitalized for an acute medical problem. During your stay at [facility], we have made an effort to correct the problem that brought you to the hospital while keeping you as comfortable as possible. Medications were used to bring your condition under control and your discharge instructions will include directions for any medications you should take after leaving the hospital. Please make sure you see your Primary Care Provider as part of your follow up plan. Activity: Resume your previous activity Non-emergency contact: Primary Care Provider and Front Desk Administrator Call non-emergency contact if: you have any medication questions, your symptoms worsen, your pain is unusual for you and you have a fever Follow-up/Referrals: Bernardino Medrano MD [Physician] - Marv Weber DO [Primary Care Provider] - Diet: Heart Healthy and Low Fat Addtl Attending Provider Instructions: You have been hospitalized for vomiting. CT of head was negative for acute stroke. There was concerns for gallbladder issues on imaging despite normal liver function testing, and additional testing was performed which was negative for acute infection. You were provided IV fluids for dehydration. Electrolyte replacement was undertaken and normalized on repeat labs. Stool sample was unable to be collected, but as discussed if any continued issues can have stool sample checked by PCP. GI provider was consulted. We increased your omeprazole to TWICE daily to help with symptoms given your hiatal hernia and these have seemed to be effective as you have not had any further vomiting during admission. It is important to continue to take reflux precautions to make sure you stay upright for at least 30 minutes after meals to prevent any issues. I have sent a prescription for Questran to take for any possible biliary colic and would recommend adhering to a low fat diet in the meantime. --If you have continued issues, it may not be a bad idea for referral to general surgery in the future for elective cholecystectomy (gallbladder removal) I did also check your thyroid hormone, which was elevated. I discussed with Dr Weber, who recently adjusted your thyroid medication and he will plan to repeat lab testing in follow up to see if any other adjustments are needed. You should LIMIT tylenol to NO MORE THAN 3,000mg ( 6 of the 500mg tablets) in a day setting as well per new guidelines. Please follow up with your PCP in the next 7-10 days to monitor your progress. Please return to the ER for any worsening symptoms or for any symptoms concerning for you. It has been a pleasure being a part of the medical team providing for you while you have been in the hospital. Take care! Pending Studies at Discharge: No Stand-Alone Forms: [facility] Medications and DC Order Prescriptions: New cholestyramine (with sugar) 4 gram powder in packet 4 g PO TID Qty: 60 RF: 0 Continued metoprolol tartrate 100 mg tablet 100 mg PO QAM RF: 0 paroxetine HCl 20 mg tablet 20 mg PO QAM RF: 0 simvastatin 20 mg tablet 20 mg PO QPM RF: 0 levothyroxine 125 mcg tablet 125 mcg PO QAM RF: 0 memantine 10 mg tablet 10 mg PO DAILY RF: 0 Changed omeprazole 40 mg capsule,delayed release(DR/EC) 40 mg PO BID Qty: 60 RF: 0 acetaminophen [Tylenol Arthritis Pain] 650 mg tablet extended release 1,000 mg PO TID Qty: 0 RF: 0 Discharge Orders: Discharge Order (Routine); Ordered 07/25/21 Ordered By: Laly Ariza Admission Data Admit Date/Time: 07/23/21 22:56 Attending Provider: Monica Oh Admit Provider: Roselia Carmichael Primary Care Provider: Marv Weber Other Providers: Julia Mukherjee ; Bernardino Medrano Supervising Physician Co-Signing Physician Notes PA Supervision Note: I personally saw and examined the patient. I verified all michel points and agree with HOLLIS Ariza with the following exceptions and/or additions: S-Pt feeling much better, tolerating low fat diet, no diarrhea, no N/V. Wants to go home. O- Vitals reviewed Gen: [AAOx2 NAD] HEENT: [anicteric sclerae, EOMI] CV: [RRR no mgr nl S1S2] Pulm: [CTAB no wcr] Abd: [+BS soft NT ND no masses or hernias] Ext: [no edema, 2+ DP pulses] Skin: [no rashes, warm/dry] Neuro: [full strength throughout] A/P-85 yo female here with N/V?D, now resolved, workup for GB dz negative. Likely VGE. Stable for dc to home Coding Level of Care Code D/C DAY MANAGEMENT >30 MINS Diagnoses Emesis R11.10 Abdominal pain R10.11 Abdominal location: right upper quadrant Hypokalemia E87.6 Alzheimer disease G30.9; F02.80 Bilateral primary osteoarthritis of knee M17.0 Hypertension I10 Hyperlipidemia E78.5
--- NOTE | 2021-07-25 16:45 | Nuclear Medicine Report ---
NUCLEAR HEPATOBILIARY SCAN WITH EJECTION FRACTION IMAGING CLINICAL HISTORY: Right upper quadrant abdominal pain. COMPARISON STUDY: Abdominal ultrasound dated 07/23/2021. TECHNIQUE: Dynamic images of the liver and anterior abdomen were obtained every 5 minutes for a total of 60 minutes following the IV administration of 5.0 mCi of technetium 99m Mebrofenin. 1.9 mcg of sincalide was then injected with an additional image acquired at 45 minutes to calculate the gallblad indigo ejection fraction. FINDINGS: The hepatobiliary scan shows prompt and homogeneous hepatic uptake. There is visualized act ivity within the intra and extrahepatic biliary tree at 10 minutes, and within the gallbladder at 30 minutes. There is normal biliary to bowel transit, with small bowel visualized by 30 minutes. On the sincalide imaging, the gallbladder ejection fraction was measured at 79%. IMPRESSION: 1. Normal nuclear hepatobiliary scan. There is no scintigraphic evidence of cholecystitis. 2. The gallbladder ejection fraction measured 79% which is normal. ACT 112: Negative or not required by law. Electronically signed by: Bryce Wolf M.D. 07/25/2021 4:43 PM
== END 2021-07-25 18:21 | disposition home or self-care (01) | DRG 446 ==
LOC: ED 17:42 → 3N 22:56 → SUATTDRO 22:56 → 3N 07-24 00:43